=== PATIENT | female | born 1995 | race Two or more races ===

== ENCOUNTER 2019-02-12 10:58 | Emergency (ER) | payer MEDICAID ==
[~2019-02-12] VITALS: Ht 160 cm; Wt 59.0 kg
[~2019-02-12 10:58] MED LIST: PREN-129 OR
[2019-02-12 11:22] VITALS: BP 119/68
[2019-02-12] MEDS ORDERED: FLUORESCEIN SOD 1 MG TEST STRIP OP ONE (13:45)
[2019-02-12] MEDS ORDERED: TETRACAINE HCL 0.5% OPTH(EYE) SOLN 4ML EACHEYE ONE (13:45)
== END 2019-02-12 14:12 | disposition home or self-care (01) ==
LOC: ER 11:18
DX: H57.89 Other specified disorders of eye and adnexa (principal)

== ENCOUNTER 2021-03-14 02:55 | Emergency (ER) | payer MEDICAID ==
[~2021-03-14] VITALS: Ht 160 cm; Wt 62.6 kg
[2021-03-14 02:58] VITALS: BP 150/87
[2021-03-14] MEDS ORDERED: TETRACAINE HCL 0.5% OPTH(EYE) SOLN 4ML LEFTEYE ONE (07:00)
[2021-03-14] MEDS ORDERED: FLUORESCEIN SOD OPTH TEST STRIP LEFTEYE ONE (07:00)
== END 2021-03-14 08:50 | disposition home or self-care (01) ==
LOC: ER 02:57
DX: S00.83XA Contusion of other part of head, initial encounter (principal); Z32.02 Encounter for pregnancy test, result negative; Y04.2XXA Assault by strike against or bumped into by another person, initial encounter; Y93.89 Activity, other specified; Y92.89 Other specified places as the place of occurrence of the external cause; Y99.8 Other external cause status
CPT/HCPCS: 70450; 70480; 81025

== ENCOUNTER 2021-09-25 18:36 | Emergency (ER) | payer MEDICAID ==
[~2021-09-25] VITALS: Ht 160 cm; Wt 138.0 kg
[2021-09-25 19:00] VITALS: BP 141/86
== END 2021-09-25 20:31 | disposition left against medical advice (07) ==
LOC: ER 18:36
DX: R51.9 Headache, unspecified (principal); Z53.21 Procedure and treatment not carried out due to patient leaving prior to being seen by health care provider

== ENCOUNTER → 2022-01-13 | Outpatient (CLI) | payer MEDICAID ==
[2022-01-13 14:31] LABS: Urine Blood Negative /uL (Negative); Urine Specific Gravity 1.002 (1.001-1.035)
[2022-01-14 06:06] LABS: RPR Non Reactive (Non Reactive)
== END | disposition home or self-care (01) ==
LOC: LAB 11:41
PROVIDERS: ATTEND Obstetrics & Gynecology Obstetrics
DX: Z11.3 Encounter for screening for infections with a predominantly sexual mode of transmission (principal)
CPT/HCPCS: 81001; 86592; 86703

== ENCOUNTER → 2023-11-21 | Outpatient (CLI) | payer MEDICAID ==
[2023-11-21 09:46] LABS: Basophils # (auto) 0.1 10 ^3/uL (0-0.2); Basophils % (auto) 0.9 % (0.0-2.0); Eosinophils # (auto) 0.3 10 ^3/uL (0-0.8); Eosinophils % (auto) 4.9 % (0.0-7.0); Hematocrit 42.4 % (36.0-46.0); Hemoglobin 14.4 g/dL (12.2-16.2); Lymphocytes # (auto) 1.6 10 ^3/uL (0.4-5.4); Lymphocytes % (auto) 25.9 % (10.0-50.0); Mean Corpuscular Hemoglobin 30.6 pg (28.0-32.0); Mean Corpuscular Hgb Conc. 34.1 g/dL (32.0-36.0); Mean Corpuscular Volume 89.8 fL (80.0-100.0); Monocytes # (auto) 0.4 10 ^3/uL (0-1.3); Monocytes % (auto) 6.7 % (0.0-12.0); Neutrophils # (auto) 3.8 10 ^3/uL (1.6-8.6); Neutrophils % (auto) 61.6 % (37.0-80.0); Platelet Count (auto) 332 10^3/uL (140-450); Red Blood Cells 4.71 10^6/uL (4.0-5.20); Red Cell Distribution Width 15.1 % (11.8-14.3); White Blood Cell 6.2 10^3/uL (4.4-10.8)
[2023-11-21 10:27] LABS: Follicle Stimulating Hormone 5.55 IU/L (SEE BELOW)
[2023-11-21 10:28] LABS: Leuteinizing Hormone 3.7 IU/L
== END | disposition home or self-care (01) ==
LOC: LAB 09:24
PROVIDERS: ATTEND Obstetrics & Gynecology
DX: N93.9 Abnormal uterine and vaginal bleeding, unspecified (principal)
CPT/HCPCS: 36415; 83001; 83002; 84403; 84443; 85025